=== PATIENT | female | born 1995 | race Caucasian/White ===

== ENCOUNTER 2021-03-23 12:52 | Emergency (ER) | payer OTHER, SELFPAY ==
[2021-03-23 13:04] VITALS: BP 116/78; PULSE 70; RESP 16; TEMP 36.4; O2SAT 100
--- NOTE | 2021-03-23 13:10 | ED.FEMALEGU ---
HPI - Female Genitourinary General Chief complaint: Urogenital-Female Stated complaint: uti Time Seen by Provider: 03/23/21 13:20 Source: patient and RN notes reviewed Mode of arrival: ambulatory Limitations: no limitations History of Present Illness HPI Narrative: 25-year-old female presents concern for urinary tract infection. Reports history of frequent urinary tract infections. She reports that 5 day history of frequency, urgency, suprapubic pain and pressure, low back pain, dysuria. Reports one episode of nausea and vomiting today. She denies fever, body aches, chills, sweats. Denies abnormal vaginal discharge or bleeding. Denies concern for STDs. MD elicited complaint: UTI Related Data Allergies Allergy/AdvReac Type Severity Reaction Status Date / Time vancomycin Allergy Rash Verified 03/23/21 13:25 Review of Systems Review of Systems: CONSTITUTIONAL: Denies malaise, chills, sweats, or fever. GASTROINTESTINAL: Denies abdominal pain, nausea, vomiting, diarrhea GENITOURINARY: Reports dysuria, frequency, urgency, suprapubic pressure and pain SKIN: Denies vaginal rash or itching. MUSCULOSKELETAL: Denies myalgia. Reports bilateral low back pain All systems reviewed & are unremarkable except as noted in HPI and below PMFSH Comments At time of signature, agree with nursing past medical, surgical, social and family history. There is no relevant family history pertinent to the presenting complaint Exam Narrative: GENERAL: Well-appearing, well-nourished, and in no acute distress. HEAD: Normocephalic. EYES: PERRLA, conjunctivae clear. NECK: Supple. No lymphadenopathy CHEST: Clear to auscultation. No respiratory distress. HEART: Regular rate and rhythm. ABDOMEN: Soft, nontender upon palpation, nondistended, normal active bowel sounds, no palpable or pulsatile masses, no guarding. No CVA tenderness SKIN: Warm, dry, no rash. NEURO: Alert and oriented x3. PSYCH: Normal mood and affect Course Course Emergency Course: Patient is aware of diagnosis, understands and agrees to treatment plan. Anticipatory guidance given. Patient agrees to follow-up as directed and is aware of reasons to seek care at the emergency department. Portions of this record may have been created with voice recognition software Vital Signs Vital signs: Vital Signs Temperature 97.5 F L 03/23/21 13:04 Pulse Rate 70 03/23/21 13:04 Respiratory Rate 16 03/23/21 13:04 Blood Pressure 116/78 03/23/21 13:04 Pulse Oximetry 100 03/23/21 13:04 Temperature 97.5 F L 03/23/21 13:04 Pulse Rate 70 03/23/21 13:04 Respiratory Rate 16 03/23/21 13:04 Blood Pressure 116/78 03/23/21 13:04 Pulse Oximetry 100 03/23/21 13:04 Reviewed. MDM - Female Genitourinary MDM Narrative Medical decision making narrative: Exam findings and UA show no acute concerns or changes; patient is non-toxic appearing and is in no distress. Patient is appropriate for outpatient treatment and follow-up. Differential Diagnosis Differential diagnosis: Likely urinary tract infection, bacterial vaginosis, vaginitis and cystitis Lab Data Labs: Urine Glucose Negative Reference Range: Negative Urine Bilirubin Negative Reference Range: Negative Urine Ketone Negative Reference Range: Negative Urine Specific [place] 1.020 Reference Range:1.001-1.035 Urine Blood Trace Reference Range: Negative * * Urine pH 5.5 Reference Range: 5.0-9.0 Urine Protein Negative
== END 2021-03-23 13:33 | disposition home or self-care (01) ==
PROVIDERS: Emergency Provider Nurse Practitioner
DX: R35.0 Frequency of micturition (principal); R39.15 Urgency of urination; R10.30 Lower abdominal pain, unspecified; M54.5 Low back pain; R30.0 Dysuria
CPT/HCPCS: 81003; 87077; 87086; 87088; 87186; 99203; G0463